=== PATIENT | female | born 1985 | race Caucasian/White ===

== ENCOUNTER 2018-09-14 22:44 | Emergency (ER) | payer OTHER, MEDICAID ==
[~2018-09-14] VITALS: Ht 157.5 cm; Wt 54.4 kg
[~2018-09-14 22:44] MED LIST: ADVIL LIQUI-GE200 MG PO; AMOXICILLIN 50500 MG PO; AMOXICILLIN875 MG PO; AUGMENTIN 500-1 EACH PO; CALCIUM 600 +1 EAC1 PO; FIORICET 50-321 EACH PO; FLEXERIL PO; IBUPROFEN 800800 M1 PO; IBUPROFEN200 M1 PO; MACROBID 100 M100 M1 PO; NAPROSYN500 MG PO; NOHOMEMEDICATIONS; NORCO 5-325 TA1 EACH PO; OSELB75 PO; PENICILLIN VK500 M1 PO; PHENERGAN 25 MG25 M1 PO; POLYMYXIN B/TMP10 ML OP; PREDNISONE 20 M20 MG PO; PROMETHAZINE-D120 ML PO; ROBITUSSIN15 MG/5 M1 PO; TESSALON200 MG PO; TRINATE TABLET1 TAB PO; VALTREX1000 MG PO; VICODIN 5-3001 EACH PO; VICODIN 5-5001 EACH PO; ZOFRAN4 MG PO; ZPAK PO
[2018-09-14 22:49] VITALS: BP 129/89
[2018-09-14 23:09] LABS: URINE BILIRUBIN NEGATIVE (Negative); URINE BLOOD TRACE (Negative); URINE CLARITY CLEAR; URINE COLOR YELLOW; URINE GLUCOSE-RANDOM NEGATIVE (Negative); URINE KETONES NEGATIVE (Negative); URINE NITRITE-REFLEX NEGATIVE (Negative); URINE PROTEIN NEGATIVE (Negative); URINE SPECIFIC GRAVITY 1.015 (1.005-1.030); URINE UROBILINOGEN 0.2 E.U./dl (0.2-1.0)
[2018-09-14 23:12] LABS: URINE LEUKOCYTES-REFLEX 2+ (Negative)
[2018-09-14 23:15] LABS: BACTERIA-REFLEX 1-9 Few /HPF (None Seen); CASTS None Seen /LPF (None Seen); CRYSTALS None Seen /LPF (None Seen); SQUAMOUS >10 Many /LPF (0-3); URINE RBC 0-2 Rare /HPF (0-2); URINE WBC-REFLEX 6-15 Few /HPF (0-5)
[2018-09-14] MEDS ORDERED: HYDROCODON-ACE1 EAC7 PO (23:19)
[2018-09-14] MEDS ORDERED: IBUPROFEN 800800 MG PO (23:19)
[2018-09-14] MEDS ORDERED: AUGMENTIN 500-1 EACH PO (23:19)
== END 2018-09-14 23:23 | disposition home or self-care (01) ==
LOC: M.ERS 22:44
PROVIDERS: Nurse Practitioner Family
DX: K02.9 Dental caries, unspecified (principal); N39.0 Urinary tract infection, site not specified; G43.909 Migraine, unspecified, not intractable, without status migrainosus; F17.210 Nicotine dependence, cigarettes, uncomplicated; Z88.5 Allergy status to narcotic agent

== ENCOUNTER 2018-11-28 16:59 | Emergency (ER) | payer OTHER, MEDICAID ==
[~2018-11-28] VITALS: Ht 157.5 cm; Wt 60.1 kg
[~2018-11-28 16:59] MED LIST changes: +HYDROCODON-ACE1 EAC7 PO; +IBUPROFEN 800800 MG PO
[2018-11-28] MEDS ORDERED: PHENERGAN 25 MG25 M1 PO (18:18)
[2018-11-28 18:36] VITALS: BP 140/82
== END 2018-11-28 18:38 | disposition home or self-care (01) ==
LOC: M.ERS 16:59
DX: G43.009 Migraine without aura, not intractable, without status migrainosus (principal); F17.210 Nicotine dependence, cigarettes, uncomplicated; Z88.5 Allergy status to narcotic agent; R11.2 Nausea with vomiting, unspecified

== ENCOUNTER 2019-04-16 09:18 | Emergency (ER) | payer OTHER, MEDICAID ==
[~2019-04-16] VITALS: Ht 157.5 cm; Wt 59.0 kg
[2019-04-16 10:06] LABS: ABSOLUTE EOSINOPHILS 0.1 thou/uL (0.0-0.7); ABSOLUTE LYMPHOCYTES 1.2 thou/uL (0.8-5.3); ABSOLUTE MONOCYTES 0.8 thou/uL (0.0-1.2); ABSOLUTE NEUTROPHILS 4.6 thou/uL (1.6-8.1); BASOPHILS 0.5 %; HEMATOCRIT 39.6 % (37.0-47.0); HEMOGLOBIN 13.4 gm/dL (12.0-15.0); LYMPHOCYTES 18.2 %; MCH 32.5 pg (26.0-34.0); MCHC 33.9 g/dL (28.0-37.0); MCV 95.8 fL (80.0-100.0); MONOCYTES 11.3 %; MPV 8.6 fl. (7.2-11.1); NUCLEATED RBCS 0 /100WBC; PLATELET COUNT* 205 thou/uL (150-400); RBC 4.13 mil/uL (4.20-5.00); RDW-CV 12.3 % (10.5-14.5); WBC 6.8 thou/uL (4.0-11.0)
[2019-04-16 10:16] LABS: SQUAMOUS 0-3 Few /LPF (0-3); URINE BILIRUBIN NEGATIVE (Negative); URINE BLOOD 3+ (Negative); URINE CLARITY CLEAR; URINE COLOR RED; URINE GLUCOSE-RANDOM NEGATIVE (Negative); URINE KETONES NEGATIVE (Negative); URINE LEUKOCYTES-REFLEX TRACE (Negative); URINE NITRITE-REFLEX NEGATIVE (Negative); URINE PROTEIN 1+ (Negative); URINE SPECIFIC GRAVITY <= 1.005 (1.005-1.030); URINE UROBILINOGEN 0.2 E.U./dl (0.2-1.0); URINE WBC-REFLEX 0-5 Rare /HPF (0-5)
[2019-04-16 10:17] LABS: BACTERIA-REFLEX 1-9 Few /HPF (None Seen); CASTS None Seen /LPF (None Seen); CRYSTALS None Seen /LPF (None Seen); MUCUS None Seen strn/LPF (None Seen); URINE RBC >20 Many /HPF (0-2)
[2019-04-16 10:19] LABS: CALCIUM 8.5 mg/dL (8.5-10.1); CREATININE 0.6 mg/dL (0.6-1.3); POTASSIUM 3.3 mmol/L (3.5-5.1)
[2019-04-16 10:24] LABS: ALBUMIN 3.7 g/dL (3.4-5.0); TOTAL BILIRUBIN 0.3 mg/dL (<0.1-1.0); TOTAL PROTEIN 7.6 g/dL (6.4-8.2)
[2019-04-16 11:02] VITALS: BP 144/91
== END 2019-04-16 11:03 | disposition home or self-care (01) ==
LOC: M.ERS 09:18
PROVIDERS: Family Medicine
DX: R10.11 Right upper quadrant pain (principal); G43.909 Migraine, unspecified, not intractable, without status migrainosus; F17.210 Nicotine dependence, cigarettes, uncomplicated; Z86.011 Personal history of benign neoplasm of the brain; Z88.5 Allergy status to narcotic agent

== ENCOUNTER 2019-06-17 08:58 | Emergency (ER) | payer OTHER, MEDICAID ==
[~2019-06-17] VITALS: Ht 157.5 cm; Wt 57.6 kg
[2019-06-17] MEDS ORDERED: ACETAZOLAMIDE125 MG PO (09:18)
[2019-06-17 09:36] VITALS: BP 140/98
== END 2019-06-17 09:36 | disposition home or self-care (01) ==
LOC: M.ERS 08:58
DX: L25.9 Unspecified contact dermatitis, unspecified cause (principal); G43.909 Migraine, unspecified, not intractable, without status migrainosus; F17.210 Nicotine dependence, cigarettes, uncomplicated; Z98.51 Tubal ligation status; Z86.73 Personal history of transient ischemic attack (TIA), and cerebral infarction without residual deficits; Z88.6 Allergy status to analgesic agent

== ENCOUNTER 2020-02-06 22:14 | Emergency (ER) | payer OTHER ==
[~2020-02-06] VITALS: Ht 157.5 cm; Wt 52.2 kg
[~2020-02-06 22:14] MED LIST changes: +ACETAZOLAMIDE125 MG PO
[2020-02-06] MEDS ORDERED: KEFLEX500 M1 PO (23:41)
[2020-02-06] MEDS ORDERED: ULTRAM 50MG TAB50 MG PO (23:41)
[2020-02-07 00:07] VITALS: BP 138/81
[2020-02-08] MEDS ORDERED: ACETAMINOPHEN-1 EAC2 PO (21:12)
[2020-02-08] MEDS ORDERED: KEFLEX500 M1 PO (21:12)
[2020-02-08] MEDS ORDERED: IBUPROFEN 600600 M1 PO (21:12)
== END 2020-02-07 00:08 | disposition home or self-care (01) ==
LOC: M.ERS 22:14
DX: S80.02XA Contusion of left knee, initial encounter (principal); S50.02XA Contusion of left elbow, initial encounter; S70.212A Abrasion, left hip, initial encounter; I10 Essential (primary) hypertension; G43.909 Migraine, unspecified, not intractable, without status migrainosus; F17.210 Nicotine dependence, cigarettes, uncomplicated; Z98.51 Tubal ligation status; Z86.73 Personal history of transient ischemic attack (TIA), and cerebral infarction without residual deficits; Z88.6 Allergy status to analgesic agent; W01.0XXA Fall on same level from slipping, tripping and stumbling without subsequent striking against object, initial encounter; Y93.89 Activity, other specified; Y92.89 Other specified places as the place of occurrence of the external cause; Y99.8 Other external cause status

== ENCOUNTER 2020-02-08 20:27 | Emergency (ER) | payer OTHER ==
[~2020-02-08] VITALS: Ht 154.9 cm; Wt 54.4 kg
[~2020-02-08 20:27] MED LIST changes: +KEFLEX500 M1 PO; +ULTRAM 50MG TAB50 MG PO
[2020-02-08] MEDS ORDERED: ACETAMINOPHEN-1 EAC2 PO (21:12)
[2020-02-08] MEDS ORDERED: KEFLEX500 M1 PO (21:12)
[2020-02-08] MEDS ORDERED: IBUPROFEN 600600 M1 PO (21:12)
[2020-02-08 22:28] VITALS: BP 132/74
== END 2020-02-08 22:28 | disposition home or self-care (01) ==
LOC: M.ERS 20:27
DX: S80.02XA Contusion of left knee, initial encounter (principal); S70.212A Abrasion, left hip, initial encounter; S50.812A Abrasion of left forearm, initial encounter; G43.909 Migraine, unspecified, not intractable, without status migrainosus; F17.210 Nicotine dependence, cigarettes, uncomplicated; Z98.51 Tubal ligation status; Z86.73 Personal history of transient ischemic attack (TIA), and cerebral infarction without residual deficits; Z88.6 Allergy status to analgesic agent; W18.39XA Other fall on same level, initial encounter; Y93.89 Activity, other specified; Y92.89 Other specified places as the place of occurrence of the external cause; Y99.8 Other external cause status

== ENCOUNTER 2020-05-11 18:18 | Emergency (ER) | payer OTHER ==
[~2020-05-11] VITALS: Ht 157.5 cm; Wt 63.5 kg
[~2020-05-11 18:18] MED LIST changes: +ACETAMINOPHEN-1 EAC2 PO; +IBUPROFEN 600600 M1 PO
[2020-05-11] MEDS ORDERED: NORCO 5-325 TA1 EAC2 PO (19:02)
[2020-05-11] MEDS ORDERED: FLEXERIL PO (19:02)
[2020-05-11 19:11] VITALS: BP 145/75
== END 2020-05-11 19:12 | disposition home or self-care (01) ==
LOC: M.ERS 18:18
DX: S39.012A Strain of muscle, fascia and tendon of lower back, initial encounter (principal); G43.909 Migraine, unspecified, not intractable, without status migrainosus; F17.210 Nicotine dependence, cigarettes, uncomplicated; Z86.73 Personal history of transient ischemic attack (TIA), and cerebral infarction without residual deficits; Z88.6 Allergy status to analgesic agent; X50.0XXA Overexertion from strenuous movement or load, initial encounter; Y93.89 Activity, other specified; Y92.89 Other specified places as the place of occurrence of the external cause; Y99.8 Other external cause status

== ENCOUNTER 2020-06-20 14:45 | Inpatient (IN) | payer MEDICAID ==
[~2020-06-20] VITALS: Ht 157.5 cm; Wt 63.7 kg
--- NOTE | ~2020-06-20 | PROC ---
[address] [address] PROCEDURE REPORT Name: CARLOS REYNOSO Room: [address] IN M.R.#: [id number] Admission: 06/20/20 Attend Phys: Karl Laughlin MD Discharge: 06/22/20 Date of : 87 Report #: [id number] THIS REPORT FOR: //name// cc: FAM - No family physician/PCP FAM - No family physician/PCP ~ For GI report, please see the Provation report in Perceptive 7 content. By: 1212Medical Records Staff [facility] /KARENA
[~2020-06-20 14:45] MED LIST changes: +NORCO 5-325 TA1 EAC2 PO
[2020-06-20 14:49] VITALS: BP 100/56
[2020-06-20 15:06] LABS: ABSOLUTE BASOPHILS 0.1 thou/uL (0.0-0.2); ABSOLUTE LYMPHOCYTES 1.1 thou/uL (0.8-5.3); ABSOLUTE MONOCYTES 0.8 thou/uL (0.0-1.2); ABSOLUTE NEUTROPHILS 9.5 thou/uL (1.6-8.1); BASOPHILS 0.7 %; EOSINOPHILS 0.1 %; HEMATOCRIT 44.7 % (37.0-47.0); HEMOGLOBIN 15.2 gm/dL (12.0-15.0); LYMPHOCYTES 9.6 %; MCH 33.1 pg (26.0-34.0); MCV 97.4 fL (80.0-100.0); MONOCYTES 7.3 %; MPV 8.8 fl. (7.2-11.1); NUCLEATED RBCS 0 /100WBC; PLATELET COUNT* 230 thou/uL (150-400); POLYS 82.3 %; RBC 4.59 mil/uL (4.20-5.00); RDW-CV 14.4 % (10.5-14.5); WBC 11.5 thou/uL (4.0-11.0)
[2020-06-20 15:14] LABS: CALCIUM 9.7 mg/dL (8.5-10.1); CREATININE 1.3 mg/dL (0.6-1.3)
[2020-06-20 15:19] LABS: ALBUMIN 4.1 g/dL (3.4-5.0); TOTAL BILIRUBIN 1.9 mg/dL (<0.1-1.0); TOTAL PROTEIN 8.4 g/dL (6.4-8.2)
[2020-06-20 17:49] LABS: URINE BILIRUBIN NEGATIVE (Negative); URINE BLOOD 3+ (Negative); URINE CLARITY CLEAR; URINE COLOR YELLOW; URINE GLUCOSE-RANDOM NEGATIVE (Negative); URINE KETONES NEGATIVE (Negative); URINE LEUKOCYTES-REFLEX NEGATIVE (Negative); URINE NITRITE-REFLEX NEGATIVE (Negative); URINE PROTEIN TRACE (Negative); URINE SPECIFIC GRAVITY <= 1.005 (1.005-1.030); URINE UROBILINOGEN 0.2 E.U./dl (0.2-1.0)
[2020-06-20 17:56] LABS: AMP/METHAMP Negative (Negative); BARBITURATES Negative (Negative); BENZODIAZEPINES Negative (Negative); COCAINE Negative (Negative); METHADONE Negative (Negative); OPIATES Negative (Negative); PCP Negative (Negative); THC Negative (Negative)
[2020-06-20 18:05] LABS: SQUAMOUS >10 Many /LPF (0-3)
[2020-06-20 18:06] LABS: URINE WBC-REFLEX 0-5 Rare /HPF (0-5)
[2020-06-20 18:07] LABS: CASTS None Seen /LPF (None Seen); CRYSTALS None Seen /LPF (None Seen); MUCUS None Seen strn/LPF (None Seen); URINE RBC 3-10 Few /HPF (0-2)
[2020-06-20 19:07] LABS: CALCIUM 8.1 mg/dL (8.5-10.1); CREATININE 1.3 mg/dL (0.6-1.3); POTASSIUM 3.2 mmol/L (3.5-5.1)
[2020-06-20 19:10] LABS: MAGNESIUM 1.4 mg/dL (1.8-2.4); PHOSPHORUS* 3.9 mg/dL (2.5-4.9)
[2020-06-20 23:46] VITALS: BP 116/82
[2020-06-21] VITALS (7 sets, daily range): BP systolic 105–146; BP diastolic 66–96
[2020-06-21 03:23] LABS: ABSOLUTE BASOPHILS 0.1 thou/uL (0.0-0.2); ABSOLUTE EOSINOPHILS 0.1 thou/uL (0.0-0.7); ABSOLUTE LYMPHOCYTES 1.5 thou/uL (0.8-5.3); ABSOLUTE MONOCYTES 0.7 thou/uL (0.0-1.2); BASOPHILS 0.8 %; EOSINOPHILS 1.5 %; HEMATOCRIT 36.9 % (37.0-47.0); LYMPHOCYTES 20.8 %; MCH 33.1 pg (26.0-34.0); MCV 97.5 fL (80.0-100.0); MPV 8.5 fl. (7.2-11.1); NUCLEATED RBCS 0 /100WBC; PLATELET COUNT* 169 thou/uL (150-400); POLYS 67.9 %; RBC 3.79 mil/uL (4.20-5.00); RDW-CV 14.5 % (10.5-14.5); WBC 7.4 thou/uL (4.0-11.0)
[2020-06-21 03:30] LABS: HEMOGLOBIN 12.5 gm/dL (12.0-15.0)
[2020-06-21 03:39] LABS: ALBUMIN 2.9 g/dL (3.4-5.0); CALCIUM 7.4 mg/dL (8.5-10.1); CREATININE 1.1 mg/dL (0.6-1.3); POTASSIUM 3.3 mmol/L (3.5-5.1); TOTAL BILIRUBIN 1.5 mg/dL (<0.1-1.0)
[2020-06-21 03:58] LABS: INR 1.1; PROTIME 11.4 Seconds (9.20-11.50)
[2020-06-21 09:07] LABS: MAGNESIUM 2.7 mg/dL (1.8-2.4); POTASSIUM 4.1 mmol/L (3.5-5.1)
--- NOTE | 2020-06-21 12:18 | EKG ---
[place] [address] ELECTROCARDIOGRAM REPORT Name: CARLOS REYNOSO Room: [address] IN [facility]#: [id number] Admission: 06/20/20 Attend Phys: Karl Laughlin, Discharge: Date of : 87 Date of Service: 06/20/20 1457 Report #: [id number] THIS REPORT FOR: //name// [facility] ED Test Date: 2020-06-20 Test Time: 14:57:37 Pat Name: CARLOS REYNOSO Department: Room: [facility] Gender: F Manager Video: : 1985 Requested By: Bhupendra Oconnor Order Number: [id number] MD: Reymundo Roy Measurements Intervals [place] Rate: 78 P: 66 AR: 131 QRS: 52 QRSD: 110 T: 10 QT: 429 QTc: 489 Interpretive Statements Sinus rhythm Borderline prolonged QT interval No previous ECG available for comparison Electronically Signed On 06-21-2020 12:18:23 PATENT CHEMIST by Reymundo Roy [email or web address] <ELECTRONICALLY SIGNED> By: Reymundo Roy MD, [facility] 06/21/20 1218 1457 1457 Reymundo Roy MD, FAC /EPI
--- NOTE | 2020-06-21 16:46 | NUR ---
ASSUMED PT CARE AT 0730, PT AOX4, NO C/O PAIN OR SHORTNESS OF BREATH. PT NPO FOR GI CONSULT. GI WORKED W/ PT AND PT HAD EGD THIS MORNING, SEE REPORT. DIET RESUMED AND BANANA BAG GOING. PT GOAL IS TO REMAIN FREE FROM ABD PAIN AND N/V. AM ASSESSMENT CHARTED, MEDS PER MAR, HOURLY ROUNDING OBSERVED, CALL LIGHT W/IN REACH.
[2020-06-21 17:06] LABS: HEPATITIS B SURFACE AG Negative (Negative)
[2020-06-21 21:05] LABS: IgA 238 mg/dL (87-352); IgG 933 mg/dL (586-1602); IgM 52 mg/dL (26-217)
[2020-06-22 00:05] VITALS: BP 125/81
[2020-06-22 03:57] VITALS: BP 124/80
[2020-06-22 04:41] LABS: HEMATOCRIT 37.7 % (37.0-47.0); HEMOGLOBIN 12.5 gm/dL (12.0-15.0); MCH 32.7 pg (26.0-34.0); MCHC 33.2 g/dL (28.0-37.0); MCV 98.5 fL (80.0-100.0); MPV 9.4 fl. (7.2-11.1); RBC 3.82 mil/uL (4.20-5.00); RDW-CV 14.3 % (10.5-14.5); WBC 6.1 thou/uL (4.0-11.0)
[2020-06-22 04:56] LABS: CALCIUM 7.7 mg/dL (8.5-10.1); CREATININE 0.8 mg/dL (0.6-1.3); POTASSIUM 3.8 mmol/L (3.5-5.1); TOTAL BILIRUBIN 0.8 mg/dL (<0.1-1.0); TOTAL PROTEIN 6.4 g/dL (6.4-8.2)
--- NOTE | 2020-06-22 07:20 | NUR ---
CHANGE OF SHIFT REPORT GIVEN PATIENT SEEN AT BEDSIDE WATCHING TV ASSUMED PATIENT CARE
[2020-06-22 08:00] VITALS: BP 120/82
--- NOTE | 2020-06-22 08:54 | NUR ---
PT IS ABLE TO COMMUNICATE HER NEEDS TO STAFF EFFECTIVELY. SHE HAS DENIED THE NEED FOR PAIN MEDICATION UP TO THIS TIME. POSSIBLE DISCHARGE LATER TODAY. PT NOT SHOWING SIGNS OF DT OF 0700 TODAY.
[2020-06-22] MEDS ORDERED: PROTONIX40 M2 PO (10:55)
--- NOTE | 2020-06-22 11:09 | CON ---
[address] [address] CONSULTATION Name: CARLOS REYNOSO Room: [address] IN ..#: [id number] Admission: 06/20/20 Attend Phys: Karl Laughlin MD Discharge: Date of : 87 Report #: [id number] THIS REPORT FOR: //name// cc: JADA - No family physician/PCP FAM - No family physician/PCP ~ DATE OF SERVICE: 06/21/2020 The patient does not have a PCP. Please note at the time of this dictation, the patient was seen and physically examined by myself. REASON FOR CONSULTATION: Nausea, vomiting and chest pain and abdominal pain. HISTORY OF PRESENT ILLNESS: This is a 34-year-old female who had her last drink yesterday at 11:45. In the morning, she began having nausea and vomiting later on, which progressively got worse, prompting her to come in early this morning. She has been having abdominal pain, epigastric along with chest pain. Her last time that she got sick, was in the ambulance. She denies any bright red blood or any coffee ground emesis with her vomitus at this time. The patient does have a long history of almost 2 years of drinking a pint of Fireball every day. She states she does not eat very much. She does take a lot of Tums on a regular basis because she has a lot of heartburn associated with this. She also mentions that she has taken a lot of ibuprofen in the past. She has cut back a little bit, but in the previous past she has been taking it 4-5 times a week and 8+ tablets on a daily basis. Currently, at the time of this dictation, the patient is not having any nausea and vomiting. She feels relatively well. She denies any heartburn at this particular time and abdominal discomfort in the epigastric area is very minimal. ALLERGIES: No known drug allergies. MEDICATIONS FROM HOME: None. PAST MEDICAL HISTORY: She had pseudotumor cerebri, migraines. She had a TIA in 11/2016. PAST SURGICAL HISTORY: Tubal ligation and removal of fallopian tubes. FAMILY HISTORY: Negative for any GI or female cancers. SOCIAL HISTORY: Tobacco use. She is cutting back half pack per day. Alcohol, a pint of Fireball daily and past recreational drug use, but none currently. REVIEW OF SYSTEMS: Twelve-point review of systems is essentially negative except what is [place] [address] CONSULTATION Name: CARLOS REYNOSO Room: [address]#: [id number] Admission: 06/20/20 Attend Phys: Karl Laughlin MD Discharge: Date of : 87 Report #: [id number] PHYSICAL EXAMINATION: VITAL SIGNS: Temperature 36.6, pulse 68, respirations 12, blood pressure 118/66. HEART: Regular rate and rhythm. LUNGS: Clear. ABDOMEN: Soft, positive bowel sounds in all 4 quadrants with some tenderness noted in the epigastric area. LABORATORY DATA: Hemoglobin 12.5, white count 7.4, platelets 169. PT 11.4, INR 1.1, CRP is 12.8, GFR is 47. Her lipase is 10. Alcohol is less than 10. Total bilirubin on admission was 1.9, she is down to 1.5, alkaline phosphatase was 123, down to 83. ALT was 265, down to 155, AST was 583, down to 252. CT showed hepatomegaly with steatosis. Ultrasound confirming the same hepatic steatosis. IMPRESSION: 1. Nausea and vomiting, resolved. 2. Abdominal pain, improved. 3. Gastroesophageal reflux disease, recurrent. 4. Nonsteroidal anti-inflammatory drug use regularly. 5. Elevated LFTs, improving. 6. Fatty liver. 7. Alcohol abuse. PLAN: 1. EGD today with Dr. Bermudez. 2. Discussed alcohol, needing to abstain completely. 3. Further recommendations to be made once Dr. Bermudez does the above procedure. Thank you for allowing us to participate in this patient's care. Please do not hesitate to call with any questions in regard to this consult. <ELECTRONICALLY SIGNED> By: Levon Bermudez DO 06/22/20 1109 1014 1045Levon Bermudez DO /nt
[2020-06-22 11:15] VITALS: BP 120/82
--- NOTE | 2020-06-22 11:40 | NUR ---
DISCHARGE TO HOME DISCHARGE INSTRUCTION PAPERWORK GIVEN AND ACKNOWLEDGED IV AND HEART MONITOR REMOVED PATIENT ASSISTED OUT VIA WC GOOD CONDITION TO WAITING CAR
[2020-06-23 09:08] LABS: ANA INTERPRETATION Negative (Negative)
== END 2020-06-22 12:15 | disposition home or self-care (01) | DRG 392 ==
LOC: M.ERS 14:45 → M.TBA-ER 17:35 → M.2W 17:35
PROVIDERS: Internal Medicine Gastroenterology; Nurse Practitioner Adult Health; Physician Assistant; ADMIT Internal Medicine; ATTEND Internal Medicine
PROC: 0DJ08ZZ Inspection of Upper Intestinal Tract, Via Natural or Artificial Opening Endoscopic (ICD-10-PCS; principal; 2020-06-21)
DX: K21.00 Gastro-esophageal reflux disease with esophagitis, without bleeding (principal); G43.909 Migraine, unspecified, not intractable, without status migrainosus; F10.20 Alcohol dependence, uncomplicated; F17.210 Nicotine dependence, cigarettes, uncomplicated; E86.0 Dehydration; E87.6 Hypokalemia; Z20.828 Contact with and (suspected) exposure to other viral communicable diseases; Z86.73 Personal history of transient ischemic attack (TIA), and cerebral infarction without residual deficits

== ENCOUNTER 2020-07-26 14:08 | Emergency (ER) | payer OTHER ==
[~2020-07-26] VITALS: Ht 157.5 cm; Wt 59.0 kg
[~2020-07-26 14:08] MED LIST changes: +PROTONIX40 M2 PO
[2020-07-26 14:52] LABS: URINE BLOOD NEGATIVE (Negative); URINE CLARITY SL CLOUDY; URINE COLOR YELLOW; URINE GLUCOSE-RANDOM NEGATIVE (Negative); URINE KETONES 1+ (Negative); URINE LEUKOCYTES-REFLEX TRACE (Negative); URINE PROTEIN 2+ (Negative); URINE SPECIFIC GRAVITY 1.015 (1.005-1.030)
[2020-07-26 14:53] LABS: ICTOTEST (BILI CONFIRMATORY) Negative (Negative); URINE BILIRUBIN 2+ (Negative); URINE NITRITE-REFLEX POSITIVE (Negative)
[2020-07-26 15:05] LABS: AMP/METHAMP Negative (Negative); BARBITURATES Negative (Negative); BENZODIAZEPINES Negative (Negative); COCAINE Negative (Negative); METHADONE Negative (Negative); OPIATES Negative (Negative); PCP Negative (Negative); THC Negative (Negative)
[2020-07-26 15:05] LABS: BACTERIA-REFLEX >30 Many /HPF (None Seen); SQUAMOUS >10 Many /LPF (0-3); URINE RBC None Seen /HPF (0-2); URINE WBC-REFLEX 0-5 Rare /HPF (0-5)
[2020-07-26 15:06] LABS: CASTS None Seen /LPF (None Seen); CRYSTALS None Seen /LPF (None Seen); MUCUS >6 Heavy strn/LPF (None Seen)
[2020-07-26 15:18] LABS: HEMATOCRIT 42.9 % (37.0-47.0); MCH 33.1 pg (26.0-34.0); MCV 94.5 fL (80.0-100.0); MPV 9.2 fl. (7.2-11.1); NUCLEATED RBCS 0 /100WBC; PLATELET COUNT* 190 thou/uL (150-400); RBC 4.54 mil/uL (4.20-5.00); RDW-CV 14.9 % (10.5-14.5); WBC 9.1 thou/uL (4.0-11.0)
[2020-07-26 15:36] LABS: CALCIUM 9.6 mg/dL (8.5-10.1)
[2020-07-26 15:38] LABS: POTASSIUM 2.9 mmol/L (3.5-5.1)
[2020-07-26 15:41] LABS: ALBUMIN 4.5 g/dL (3.4-5.0); TOTAL BILIRUBIN 1.9 mg/dL (<0.1-1.0); TOTAL PROTEIN 9.2 g/dL (6.4-8.2)
[2020-07-26 15:48] LABS: ABSOLUTE LYMPHOCYTES 0.8 thou/uL (0.8-5.3); ABSOLUTE MONOCYTES 0.3 thou/uL (0.0-1.2); PLATELET ESTIMATE ADEQUATE
--- NOTE | 2020-07-26 15:55 | EKG ---
[place] [address] ELECTROCARDIOGRAM REPORT Name: CARLOS REYNOSO Room: [facility]#: [id number] Admission: 07/26/20 Attend Phys: Discharge: Date of : 87 Date of Service: 07/26/20 1457 Report #: [id number] THIS REPORT FOR: //name// [facility] ED Test Date: 2020-07-26 Test Time: 14:57:25 Pat Name: CARLOS REYNOSO Department: Room: Gender: Activities Counselor: [facility] : 1985 Requested By: Jarvis Little Order Number: [id number] MD: Reymundo Roy Measurements Intervals [place] Rate: 70 P: 35 [place]: 114 QRS: 53 QRSD: 120 T: 42 QT: 455 QTc: 491 Interpretive Statements Sinus rhythm Borderline short OK interval Nonspecific intraventricular conduction delay Compared to ECG 06/20/2020 14:57:37 no change Electronically Signed On 07-26-2020 15:55:20 FINANCING ANALYST by Reymundo Roy [email or web address] <ELECTRONICALLY SIGNED> By: Reymundo Roy MD, [facility] 07/26/20 1555 145 145 Reymundo Roy MD, FAC /EPI
[2020-07-26] MEDS ORDERED: ZOFRAN ODT4 MG DISSOLVE (17:35)
[2020-07-26] MEDS ORDERED: AUGMENTIN 875-1 EACH PO (17:35)
[2020-07-26 17:47] VITALS: BP 135/70
== END 2020-07-26 17:48 | disposition home or self-care (01) ==
LOC: M.ERS 14:08
PROVIDERS: Emergency Medicine Emergency Medical Services
DX: N39.0 Urinary tract infection, site not specified (principal); G43.909 Migraine, unspecified, not intractable, without status migrainosus; F17.210 Nicotine dependence, cigarettes, uncomplicated; Z98.51 Tubal ligation status; Z86.73 Personal history of transient ischemic attack (TIA), and cerebral infarction without residual deficits; Z88.8 Allergy status to other drugs, medicaments and biological substances

== ENCOUNTER 2020-11-08 14:42 | Emergency (ER) | payer MEDICAID ==
[~2020-11-08] VITALS: Ht 157.5 cm; Wt 59.0 kg
[~2020-11-08 14:42] MED LIST changes: +AUGMENTIN 875-1 EACH PO; +ZOFRAN ODT4 MG DISSOLVE
[2020-11-08 15:01] LABS: ABSOLUTE BASOPHILS 0.1 thou/uL (0.0-0.2); ABSOLUTE LYMPHOCYTES 0.6 thou/uL (0.8-5.3); ABSOLUTE MONOCYTES 0.6 thou/uL (0.0-1.2); ABSOLUTE NEUTROPHILS 6.3 thou/uL (1.6-8.1); BASOPHILS 0.7 %; EOSINOPHILS 0.1 %; HEMATOCRIT 40.2 % (37.0-47.0); HEMOGLOBIN 13.9 gm/dL (12.0-15.0); LYMPHOCYTES 8.1 %; MCH 34.5 pg (26.0-34.0); MCHC 34.6 g/dL (28.0-37.0); MCV 99.8 fL (80.0-100.0); MONOCYTES 8.5 %; MPV 9.2 fl. (7.2-11.1); NUCLEATED RBCS 0 /100WBC; PLATELET COUNT* 200 thou/uL (150-400); POLYS 82.6 %; RBC 4.03 mil/uL (4.20-5.00); RDW-CV 15.9 % (10.5-14.5); WBC 7.6 thou/uL (4.0-11.0)
[2020-11-08 15:09] LABS: CALCIUM 8.9 mg/dL (8.5-10.1); CREATININE 0.7 mg/dL (0.6-1.3)
[2020-11-08 15:10] LABS: POTASSIUM 2.5 mmol/L (3.5-5.1)
[2020-11-08 15:13] LABS: ALBUMIN 3.9 g/dL (3.4-5.0); TOTAL BILIRUBIN 1.9 mg/dL (<0.1-1.0); TOTAL PROTEIN 8.8 g/dL (6.4-8.2)
[2020-11-08 15:49] LABS: URINE BLOOD NEGATIVE (Negative); URINE CLARITY CLEAR; URINE COLOR YELLOW; URINE GLUCOSE-RANDOM NEGATIVE (Negative); URINE KETONES 3+ (Negative); URINE LEUKOCYTES-REFLEX NEGATIVE (Negative); URINE NITRITE-REFLEX NEGATIVE (Negative); URINE PROTEIN 2+ (Negative); URINE SPECIFIC GRAVITY 1.015 (1.005-1.030)
[2020-11-08 15:50] LABS: ICTOTEST (BILI CONFIRMATORY) Negative (Negative); URINE BILIRUBIN 1+ (Negative)
[2020-11-08 15:58] LABS: SQUAMOUS 4-10 Moderate /LPF (0-3)
[2020-11-08 15:59] LABS: CASTS None Seen /LPF (None Seen); CRYSTALS None Seen /LPF (None Seen); MUCUS 0-3 Light strn/LPF (None Seen); URINE RBC None Seen /HPF (0-2); URINE WBC-REFLEX 0-5 Rare /HPF (0-5)
[2020-11-08] MEDS ORDERED: POTASSIUM20 PO (16:19)
[2020-11-08] MEDS ORDERED: ZOFRAN ODT4 MG SUBLING (16:19)
[2020-11-08 16:45] VITALS: BP 153/86
== END 2020-11-08 16:46 | disposition home or self-care (01) ==
LOC: M.ERS 14:42
PROVIDERS: Family Medicine
DX: R11.2 Nausea with vomiting, unspecified (principal); E87.6 Hypokalemia; G43.909 Migraine, unspecified, not intractable, without status migrainosus; F17.210 Nicotine dependence, cigarettes, uncomplicated; Z86.73 Personal history of transient ischemic attack (TIA), and cerebral infarction without residual deficits; Z88.6 Allergy status to analgesic agent

== ENCOUNTER 2021-04-13 09:37 | Emergency (ER) | payer OTHER ==
[~2021-04-13] VITALS: Ht 157.5 cm; Wt 59.0 kg
[~2021-04-13 09:37] MED LIST changes: +POTASSIUM20 PO; +ZOFRAN ODT4 MG SUBLING
[2021-04-13 09:49] VITALS: BP 184/100
== END 2021-04-13 11:18 | disposition left against medical advice (07) ==
LOC: M.ERS 09:37
DX: R10.10 Upper abdominal pain, unspecified (principal); R11.2 Nausea with vomiting, unspecified; Z53.21 Procedure and treatment not carried out due to patient leaving prior to being seen by health care provider

== ENCOUNTER 2021-04-29 00:11 | Emergency (ER) | payer OTHER ==
[~2021-04-29] VITALS: Ht 157.5 cm; Wt 59.0 kg
[2021-04-29 00:49] LABS: ABSOLUTE BASOPHILS 0.1 thou/uL (0.0-0.2); ABSOLUTE EOSINOPHILS 0.1 thou/uL (0.0-0.7); ABSOLUTE MONOCYTES 0.7 thou/uL (0.0-1.2); ABSOLUTE NEUTROPHILS 6.1 thou/uL (1.6-8.1); BASOPHILS 1.3 %; EOSINOPHILS 0.8 %; HEMATOCRIT 40.2 % (37.0-47.0); HEMOGLOBIN 13.5 gm/dL (12.0-15.0); MCH 31.8 pg (26.0-34.0); MCHC 33.6 g/dL (28.0-37.0); MCV 94.7 fL (80.0-100.0); MONOCYTES 7.8 %; MPV 8.2 fl. (7.2-11.1); NUCLEATED RBCS 0 /100WBC; PLATELET COUNT* 304 thou/uL (150-400); POLYS 68.1 %; RBC 4.25 mil/uL (4.20-5.00); RDW-CV 20.9 % (10.5-14.5)
[2021-04-29 01:03] LABS: CALCIUM 8.8 mg/dL (8.5-10.1); CREATININE 0.6 mg/dL (0.6-1.3)
[2021-04-29 01:05] LABS: POTASSIUM 2.9 mmol/L (3.5-5.1)
[2021-04-29 01:08] LABS: ALBUMIN 3.9 g/dL (3.4-5.0); MAGNESIUM 1.8 mg/dL (1.8-2.4); TOTAL BILIRUBIN 0.6 mg/dL (<0.1-1.0)
[2021-04-29] MEDS ORDERED: ATIVAN0.5 M1 PO (03:00)
[2021-04-29] MEDS ORDERED: ZOFRAN ODT4 MG PO (03:00)
[2021-04-29] MEDS ORDERED: CARAFATE 1 GM TA1 GM PO (03:00)
[2021-04-29] MEDS ORDERED: KLOR-CON 1010 MEQ PO (03:02)
[2021-04-29 03:17] VITALS: BP 123/86
== END 2021-04-29 03:17 | disposition home or self-care (01) ==
LOC: M.ERS 00:11
PROVIDERS: Emergency Medicine
DX: K29.20 Alcoholic gastritis without bleeding (principal); E87.6 Hypokalemia; G43.909 Migraine, unspecified, not intractable, without status migrainosus; I10 Essential (primary) hypertension; F17.210 Nicotine dependence, cigarettes, uncomplicated; Z98.51 Tubal ligation status; Z88.8 Allergy status to other drugs, medicaments and biological substances